=== PATIENT | female | born 1955 | race Caucasian/White ===

== ENCOUNTER 2019-04-16 20:18 | Emergency (ER) | payer BC ==
[~2019-04-16] VITALS: Ht 172.7 cm; Wt 81.6 kg
[2019-04-16 20:23] VITALS: BP_SYST 147
--- NOTE | 2019-04-16 21:48 | NUR ---
Patient to ER bed H1 to gown for evaluation. Side rails up.
--- NOTE | 2019-04-16 22:00 | NUR ---
Patient AOx4, ambulatory, presents to ER with complaint of right arm pain 4/10 and redness x few days. Patient states she was bit by a couple of insects. No other symptoms or complaints.
--- NOTE | 2019-04-16 23:30 | NUR ---
Dr. Poe at bedside.
[2019-04-16 23:50] VITALS: BP_SYST 138
--- NOTE | 2019-04-16 23:50 | NUR ---
Patient given written and verbal discharge instructions and verbalizes understanding. ER MD discussed with patient the results and treatment provided. Patient in stable condition. ID arm band removed. Rx of Keflex and Bactroban given. Patient educated on pain management and to follow up with PMD. Pain Scale 2/10 tolerable to patient. Opportunity for questions provided and answered. Medication side effect fact sheet provided.
== END 2019-04-16 23:50 | disposition home or self-care (01) ==
LOC: SED 20:18
DX: L03.113 Cellulitis of right upper limb (principal); I10 Essential (primary) hypertension
CPT/HCPCS: 99283